=== PATIENT | female | born 1970 | race Caucasian/White ===

== ENCOUNTER 2020-11-06 08:47 | Outpatient (CLI) | payer OTHER | END 2020-11-06 23:59 | disposition home or self-care (01) | LOC: CFH 08:47 | PROVIDERS: ATTEND Registered Nurse | DX: J84.10 Pulmonary fibrosis, unspecified (principal); R91.1 Solitary pulmonary nodule; J98.4 Other disorders of lung; J45.40 Moderate persistent asthma, uncomplicated; K44.9 Diaphragmatic hernia without obstruction or gangrene | CPT/HCPCS: 71250 ==